=== PATIENT | male | born 2000 | race African-American/Black ===

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

== ENCOUNTER 2021-06-28 18:40 | Inpatient (IN) ==
--- NOTE | 2021-06-28 19:14 | Emergency Department Note ---
Impression & Plan Mood disorder, Suicidal ideation, Depression ED Provider Note NAME: JADIEL PALENCIA Jr AGE: 20 SEX: M : 2000 ARRIVES VIA: [employer] INFORMANT: Patient ED PROVIDER(S): Nathan Williamson DO CHIEF COMPLAINT: Suicidal ideations HPI: Patient is a 20-year-old male with a past medical history of asthma that presents to the ER for suicidal ideations. He notes he has been having thoughts of wanting to kill himself for some time now. Tonight he drank a bunch of alcohol. He was sitting on the side of the road and think about running out in front of a car to kill himself. The only thing that was stopping him at that time was thinking about his child. Police saw him sitting on the curb to drive by and started talking with him and brought him in. He admits to intermittent auditory hallucinations but cannot think of what they are at this time. Denies any visual hallucinations. No other complaints. Does admit to drinking some alcohol earlier today. ROS: See above HPI for pertinent positives & negatives. A total of 10 systems reviewed and were otherwise negative. PAST MEDICAL HISTORY:See Below PAST SURGICAL HISTORY:See Below FAMILY HISTORY:See Below SOCIAL HISTORY:See Below HOME MEDICATIONS:See Below ALLERGIES:See Below VITALS:See Below PHYSICAL EXAMINATION: GENERAL: Sitting up in bed, alert, well appearing, well nourished, no distress, non-toxic EYE EXAM: normal conjunctiva. PERRL and EOM's grossly intact. OROPHARYNX: no exudate, no erythema, lips, buccal mucosa, and tongue normal and mucous membranes are moist NECK: supple, no nuchal rigidity, no adenopathy, non-tender LUNGS: Clear to auscultation. Normal chest wall mechanics HEART: no murmurs, S1 normal and S2 normal ABDOMEN: abdomen soft, non-tender, normo-active bowel sounds, no masses, no rebound or guarding. UPPER EXTREMITIES: upper extremities are grossly normal. LOWER EXTREMITIES: No pitting edema. NEURO EXAM: Normal sensorium, cranial nerves II-XII grossly intact, normal speech, no gross weakness of arms, no gross weakness of legs. PSYCH: Admits to sitting on the edge of a curb contemplating jumping in front of a moving car. MEDICAL DECISION MAKING: Patient is a 20-year-old male who presents the ER for suicidal ideations with a plan to jump out in front of a car as he was sitting on the curb watching cars drive-by. He feels as though he is nothing left to live for and feels very depressed. Going that was stopping him from doing this was thinking about his son. Blood work was obtained and showed no significant leukocytosis or anemia. BMP with a slightly elevated chloride. LFTs bilirubin and TSH was unremarkable. UA was clean. Tox was positive for marijuana. Alcohol was slightly elevated at 84. Covid was negative. Patient had minimal alcohol in his system when he was elaborating on this plan. He does want to come in. I do feel this is reasonable. Patient was signed out to Dr. Qiu for the change of shift. Observation Status: Indication: Psychiatric evaluation and medical stability Patient with no pertinent family history, was seen first at 1910 hrs and was necessary in order to determine medical stability and avoid unnecessary admission. Upon reevaluation, 3.45 hours of observation revealed that the patient should be signed out to Dr. Ortega for the change shift. Disposition date and time 06/28/21 at 2230. Triage Nursing notes reviewed. Limited review of prior medical records performed Vital Signs: reviewed and remarkable for no significant abnormalities Differential diagnosis: Mood disorder, infection, hypoglycemia, electrolyte abnormalities, cardiac sources, intracerebral event, toxicologic, trauma, neurologic, as well as other pathologies. ER treatment provided: See below Diagnostics interpreted by me: Laboratory studies: As stated above and show below. Imaging studies: See below Consultation(s): none Procedures: none Critical Care: None Past Med/Surg History Medical History (Updated 06/28/21 @ 22:25 by Nathan Williamson DO) Asthma Surgical History Hx of wisdom tooth extraction Social History Smoking Status: Former smoker Tobacco Type: E-cigarettes / Vaping Preferred Language: Tamazight Feels Safe at Home: No Allergies Allergies Allergy/AdvReac Type Severity Reaction Status Date / Time No Known Allergies Allergy Verified 10/08/20 14:16 Home Meds Home Medications Medication Instructions Recorded Confirmed albuterol sulfate 90 mcg/actuation 2 puff INHALATION Q6H PRN 12/22/18 06/28/21 aerosol inhaler (Ventolin HFA) Results & Data (ED) Vital Signs Vital Signs - 24 hr 06/28/21 18:44 06/28/21 20:45 Temperature 36.5 C 37.1 C Temperature Source Temporal Artery Scan Oral Pulse Rate 62 Pulse Rate [Apical] 57 L Respiratory Rate 18 16 Respiratory Effort / Characteristics Non-Labored Non-Labored Respiratory Depth Normal Normal Blood Pressure 139/99 Blood Pressure [Right Arm] 151/95 H Blood Pressure Mean 112 Blood Pressure Mean [Right Arm] 113 Pulse Oximetry 98 98 Oxygen Delivery Method Room Air Room Air Sepsis Recent Fever Within 48 Hours No Sepsis New/Unexplained Change in Mental Status No Sepsis Action Taken by Nursing No Action Required Laboratory Data Result diagrams: 06/28/21 19:07 06/28/21 19:07 Lab Results 06/28/21 06/28/21 06/28/21 Range/Units 19:07 19:07 19:07 WBC 8.83 (4.8-10.8) K/uL RBC 5.09 (4.7-6.1) M/uL Hgb 15.1 (14.0-18.0) g/dL Hct 42.1 (42-52) % MCV 82.7 (80-100) fL MCH 29.7 (25-34) pg MCHC 35.9 (32-36) g/dL RDW Std Deviation 39.1 (36.4-46.3) fL RDW Coeff of Angel 13.0 (11.5-14.5) % Plt Count 281 (130-400) K/uL MPV 10.6 H (7.4-10.4) fL Immature Gran % (Auto) 0.2 % Neut % (Auto) 60.5 % Lymph % (Auto) 33.3 % Miller % (Auto) 3.9 % Eos % (Auto) 1.8 % Baso % (Auto) 0.3 % Neut # (Auto) 5.34 (1.4-6.5) K/uL Lymph # (Auto) 2.94 (1.2-3.4) K/uL [place] # (Auto) 0.34 (0.11-0.59) K/uL Eos # (Auto) 0.16 (0-0.5) K/uL Baso # (Auto) 0.03 (0-0.2) K/uL Immature Gran # (Auto) 0.02 (0.00-0.02) K/uL Sodium 143 (136-145) mmol/L Potassium 3.5 (3.5-5.1) mmol/L Chloride 109 H (98-107) mmol/L Carbon Dioxide 25 (21-32) mmol/L Anion Gap 8.0 (3-11) BUN 10 (7-18) mg/dl Creatinine 0.80 (0.6-1.4) mg/dl Est Cr Clr Drug Dosing 170.3 ml/min Est GFR ( Amer) 148.0 ml/min Est GFR (Non-Af Amer) 127.7 ml/min BUN/Creatinine Ratio 12.9 (10-20) Glucose 93 (70-99) mg/dl Calcium 9.2 (8.5-10.1) mg/dl Total Bilirubin 0.9 (0.2-1) mg/dl AST 33 (15-37) U/L ALT 98 H (12-78) U/L Alkaline Phosphatase 80 (45-117) U/L Total Protein 7.5 (6.4-8.2) gm/dl Albumin 3.9 (3.4-5.0) gm/dl Globulin 3.6 (2.5-4.0) gm/dl Albumin/Globulin Ratio 1.1 (0.9-2) TSH 1.460 (0.300-4.500) uIu/ml Urine Color Urine Appearance (Clear) Urine pH (4.5-7.5) Ur Specific [place] (1.000-1.030) Urine Protein (Negative) Urine Glucose (UA) (Negative) Urine Ketones (Negative) Urine Blood (Negative) Urine Nitrite (Negative) Urine Bilirubin (Negative) Urine Urobilinogen (Negative) Ur Leukocyte Esterase (Negative) Salicylates < 1.7 L (2.8-20) mg/dl Urine Opiates Screen (Neg) Ur Methadone, Qual (Neg) Acetaminophen < 2 L (10-30) ug/ml Urine Barbiturates (Neg) Ur Phencyclidine (PCP) (Neg) U Amphetamin/Meth Scrn (Neg) MDMA (Ecstasy) Screen (Neg) U Benzodiazepines Scrn (Neg) Ur Cocaine Metabolite (Neg) U Marijuana (THC) Screen (Neg) Ethyl Alcohol mg/dL (0-3) mg/dl COVID-19 Eval Order SARS-CoV-2, RNA, NAAT (NEGATIVE) 06/28/21 06/28/21 06/28/21 Range/Units 19:07 19:10 19:10 WBC (4.8-10.8) K/uL RBC (4.7-6.1) M/uL Hgb (14.0-18.0) g/dL Hct (42-52) % MCV (80-100) fL MCH (25-34) pg MCHC (32-36) g/dL RDW Std Deviation (36.4-46.3) fL RDW Coeff of Angel (11.5-14.5) % Plt Count (130-400) K/uL MPV (7.4-10.4) fL Immature Gran % (Auto) % Neut % (Auto) % Lymph % (Auto) % [place] % (Auto) % Eos % (Auto) % Baso % (Auto) % Neut # (Auto) (1.4-6.5) K/uL Lymph # (Auto) (1.2-3.4) K/uL [place] # (Auto) (0.11-0.59) K/uL Eos # (Auto) (0-0.5) K/uL Baso # (Auto) (0-0.2) K/uL Immature Gran # (Auto) (0.00-0.02) K/uL Sodium (136-145) mmol/L Potassium (3.5-5.1) mmol/L Chloride (98-107) mmol/L Carbon Dioxide (21-32) mmol/L Anion Gap (3-11) BUN (7-18) mg/dl Creatinine (0.6-1.4) mg/dl Est Cr Clr Drug Dosing ml/min Est GFR ( Amer) ml/min Est GFR (Non-Af Amer) ml/min BUN/Creatinine Ratio (10-20) Glucose (70-99) mg/dl Calcium (8.5-10.1) mg/dl Total Bilirubin (0.2-1) mg/dl AST (15-37) U/L ALT (12-78) U/L Alkaline Phosphatase (45-117) U/L Total Protein (6.4-8.2) gm/dl Albumin (3.4-5.0) gm/dl Globulin (2.5-4.0) gm/dl Albumin/Globulin Ratio (0.9-2) TSH (0.300-4.500) uIu/ml Urine Color Urine Appearance (Clear) Urine pH (4.5-7.5) Ur Specific [place] (1.000-1.030) Urine Protein (Negative) Urine Glucose (UA) (Negative) Urine Ketones (Negative) Urine Blood (Negative) Urine Nitrite (Negative) Urine Bilirubin (Negative) Urine Urobilinogen (Negative) Ur Leukocyte Esterase (Negative) Salicylates (2.8-20) mg/dl Urine Opiates Screen (Neg) Ur Methadone, Qual (Neg) Acetaminophen (10-30) ug/ml Urine Barbiturates (Neg) Ur Phencyclidine (PCP) (Neg) U Amphetamin/Meth Scrn (Neg) MDMA (Ecstasy) Screen (Neg) U Benzodiazepines Scrn (Neg) Ur Cocaine Metabolite (Neg) U Marijuana (THC) Screen (Neg) Ethyl Alcohol mg/dL 84.3 H (0-3) mg/dl COVID-19 Eval [facility] SARS-CoV-2, RNA, NAAT NEGATIVE (NEGATIVE) 06/28/21 06/28/21 Range/Units 19:49 19:49 WBC (4.8-10.8) K/uL RBC (4.7-6.1) M/uL Hgb (14.0-18.0) g/dL Hct (42-52) % MCV (80-100) fL MCH (25-34) pg MCHC (32-36) g/dL RDW Std Deviation (36.4-46.3) fL RDW Coeff of Angel (11.5-14.5) % Plt Count (130-400) K/uL MPV (7.4-10.4) fL Immature Gran % (Auto) % Neut % (Auto) % Lymph % (Auto) % [place] % (Auto) % Eos % (Auto) % Baso % (Auto) % Neut # (Auto) (1.4-6.5) K/uL Lymph # (Auto) (1.2-3.4) K/uL [place] # (Auto) (0.11-0.59) K/uL Eos # (Auto) (0-0.5) K/uL Baso # (Auto) (0-0.2) K/uL Immature Gran # (Auto) (0.00-0.02) K/uL Sodium (136-145) mmol/L Potassium (3.5-5.1) mmol/L Chloride (98-107) mmol/L Carbon Dioxide (21-32) mmol/L Anion Gap (3-11) BUN (7-18) mg/dl Creatinine (0.6-1.4) mg/dl Est Cr Clr Drug Dosing ml/min Est GFR ( Amer) ml/min Est GFR (Non-Af Amer) ml/min BUN/Creatinine Ratio (10-20) Glucose (70-99) mg/dl Calcium (8.5-10.1) mg/dl Total Bilirubin (0.2-1) mg/dl AST (15-37) U/L ALT (12-78) U/L Alkaline Phosphatase (45-117) U/L Total Protein (6.4-8.2) gm/dl Albumin (3.4-5.0) gm/dl Globulin (2.5-4.0) gm/dl Albumin/Globulin Ratio (0.9-2) TSH (0.300-4.500) uIu/ml Urine Color Yellow Urine Appearance Clear (Clear) Urine pH 6.5 (4.5-7.5) Ur Specific [place] 1.019 (1.000-1.030) Urine Protein Negative (Negative) Urine Glucose (UA) Negative (Negative) Urine Ketones Negative (Negative) Urine Blood Negative (Negative) Urine Nitrite Negative (Negative) Urine Bilirubin Negative (Negative) Urine Urobilinogen Negative (Negative) Ur Leukocyte Esterase Negative (Negative) Salicylates (2.8-20) mg/dl Urine Opiates Screen Neg (Neg) Ur Methadone, Qual Neg (Neg) Acetaminophen (10-30) ug/ml Urine Barbiturates Neg (Neg) Ur Phencyclidine (PCP) Neg (Neg) U Amphetamin/Meth Scrn Neg (Neg) MDMA (Ecstasy) Screen Neg (Neg) U Benzodiazepines Scrn Neg (Neg) Ur Cocaine Metabolite Neg (Neg) U Marijuana (THC) Screen Pos H (Neg) Ethyl Alcohol mg/dL (0-3) mg/dl COVID-19 Eval Order SARS-CoV-2, RNA, NAAT (NEGATIVE) Discharge Plan Visit Data Chief Complaint: Mental Health Evaluation Stated Complaint: MENTAL HEALTH EVAL ED Provider: Nathan Williamson Discharge Problem: Mood disorder, Suicidal ideation, Depression Forms Stand Alone Forms: [facility], Suicide Prevention Resources Prescriptions Prescriptions: No Action albuterol sulfate [Ventolin HFA] 90 mcg/actuation Hfa Aerosol Inhaler 2 puff INHALATION Q6H PRN (Reason: Shortness Of Breath Or Wheezing) RF: 0 Referrals Referrals: Mallory Noyola DO [Primary Care Provider] - Discharge Problem: Depression Qualifiers: Depression Type: unspecified Qualified Code(s): F32.A - Depression, unspecified
[2021-06-28 19:16] LABS: Basophils # (auto) 0.03 K/uL (0-0.2); Basophils % (auto) 0.3 %; Eosinophils # (auto) 0.16 K/uL (0-0.5); Eosinophils % (auto) 1.8 %; Hematocrit (blood only) 42.1 % (42-52); Hemoglobin 15.1 g/dL (14.0-18.0); Immature Granulocytes # (auto) 0.02 K/uL (0.00-0.02); Immature Granulocytes % (auto) 0.2 %; Lymphocytes # (auto) 2.94 K/uL (1.2-3.4); Lymphocytes % (auto) 33.3 %; Mean Corpuscular Hemoglobin 29.7 pg (25-34); Mean Corpuscular Hgb Conc 35.9 g/dL (32-36); Mean Corpuscular Volume 82.7 fL (80-100); Mean Platelet Volume 10.6 fL (7.4-10.4); Monocytes # (auto) 0.34 K/uL (0.11-0.59); Monocytes % (auto) 3.9 %; Neutrophils # (auto) 5.34 K/uL (1.4-6.5); Neutrophils % (auto) 60.5 %; Platelet Count 281 K/uL (130-400); RDW Standard Deviation 39.1 fL (36.4-46.3); Red Blood Count 5.09 M/uL (4.7-6.1); White Blood Count 8.83 K/uL (4.8-10.8)
[2021-06-28 19:33] LABS: Albumin Level 3.9 gm/dl (3.4-5.0); BUN Creatinine Ratio 12.9 (10-20); Calcium 9.2 mg/dl (8.5-10.1); Creatinine Clr Calc Pharmacy 170.3 ml/min; Est GFR (Non-African American) 127.7 ml/min; Potassium 3.5 mmol/L (3.5-5.1)
[2021-06-28 19:35] LABS: Acetaminophen < 2 ug/ml (10-30); Salicylate < 1.7 mg/dl (2.8-20)
[2021-06-28 19:44] LABS: Albumin Globulin Ratio 1.1 (0.9-2); Bilirubin,Total 0.9 mg/dl (0.2-1); Globulin 3.6 gm/dl (2.5-4.0); Thyroid Stimulating Hormone 1.46 uIu/ml (0.300-4.500); Total Protein 7.5 gm/dl (6.4-8.2)
[2021-06-28 19:59] LABS: Appearance Urine Clear (Clear); Bilirubin Urine Negative (Negative); Blood Urine Negative (Negative); Color Urine Yellow; Glucose Urine UA Negative (Negative); Ketones Urine Negative (Negative); Leukocyte Esterase Urine Negative (Negative); Nitrite Urine Negative (Negative); Protein Urine Negative (Negative); Specific Gravity Urine 1.019 (1.000-1.030); Urobilinogen Urine Negative (Negative); pH Urine 6.5 (4.5-7.5)
[2021-06-28 20:19] LABS: Amphetamines+Metham, Urine Neg (Neg); Barbiturates, Urine Neg (Neg); Benzodiazepine, Urine Neg (Neg); Cocaine, Urine Neg (Neg); MDMA (Ecstacy), Urine Neg (Neg); Methadone, Urine Neg (Neg); Opiate, Urine Neg (Neg); Phencyclidine, Urine Neg (Neg)
--- NOTE | 2021-06-29 00:45 | Emergency Department Note ---
ED Visit Note The patient was accepted at [facility]. . : Depression Qualifiers: Depression Type: unspecified Qualified Code(s): F32.A - Depression, unspecified
[2021-06-29] MEDS ORDERED: SODIUM CHLORIDE 0.65% NA SOLN 45 ML (OCEAN) PRN (01:00)
[2021-06-29] MEDS ORDERED: ALUMINUM/MAGNESIUM SUSP 30 ML UDC PO PRN (01:00)
[2021-06-29] MEDS ORDERED: hydrOXYzine HCl 25 MG TAB PO PRN ×2 (01:00)
[2021-06-29] MEDS ORDERED: MAGNESIUM HYDROXIDE SUSP 30 ML UDC PO PRN (01:00)
[2021-06-29] MEDS ORDERED: ACETAMINOPHEN 325 MG TAB PO PRN (01:00)
[2021-06-29] MEDS ORDERED: BISMUTH SUBSALICYLATE LIQD 236 ML PO PRN (01:00)
[2021-06-29] MEDS ORDERED: buPROPion SR 100 MG TABCR PO ONE (11:09)
--- NOTE | 2021-06-29 14:26 | History & Physical ---
Date of Service June 29, 2021 Impression / Recommendations Impression 20 yo male with a long history of intermittent mood disorder, possible persistent ADHD/inattention, presents with vegetative symptoms and near gesture with traffic. (1) Major depression: 06/29/21: The patient was admitted to the [facility] ([facility] mental health unit) on q15 min checks (behavioral with suicide precautions) for safety. The patient will participate in group, recreational, and milieu therapies and will be offered additional individual and family sessions as clinically appropriate. Risks/benefits/alternatives reviewed re: antidepressants for the treatment of depression and/or anxiety. Discussion included but was not limited to FDA warnings re: suicidality in adolescents and young adults. The patient agreed to a trial of Wellbutrin. Will begin Wellbutrin SR 100 mg now then 150 mg tomorrow, switch to XL prep if no sleep issues. Confirmed no hx of seizure. Risk Factors Assessment Do You Have Access To A Gun?: No Protective Factors Assessment Employed: Yes ([employer]) Psychiatric History Identifying Data JADIEL PALENCIA is a 20-year-old M from [place] who was admitted on 06/29/21 00:32 on a 201 voluntary commitment for near suicidal gesture. Chief Complaint "If the police didn't bring me here I'd probably be ". History of Present Illness Jadiel reports a variety of mood issues since "I was a kid" but worsening in the past few weeks due to conflict with girlfriend. She just turned 21 yo and they have been a couple for 3 years and have a 2-year-old son. They are both dealing with depression and he reportedly yells because "she stays out late hanging with friends". He enjoys his time with his son but feels the stress of being the sole provider. 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 He opted to stay here to be a family with his son instead. He denies a specific inciting even yesterday but felt the need to calm down and drank some peppermint schnapps. He reports rarely drinking. He went for a walk in the gray and screamed "it out" and then sat by the road and thought of running out in front of a car. He must have been there for some time as police (who were responding to another mental health emergency) saw him and questioned the behavior. He states that another stressor is that he quit smoking (vape and MJ) like 2 weeks ago for health reasons but "it's hard". He admits to using CBD gummies to "relax at bed" and reports girlfriend has a medical MJ card. It was reported from the ED that he possibly was experiencing cook. He currently denies stating that thoughts get "stuck in my head but I know they are my thoughts" and with regards to paranoia was more general sense of someone or the world is out to get him. More prominent when was using MJ. Past Psychiatric History Previous Psych History: states as a child he took medication (perhaps Adderall for ADHD inattentive type) and had to see a therapist for threatening to harm his brother who bullied him. Current Psychiatric Diagnosis: MDD Outpatient Services: none Previous Psych Admissions: none Do You Have Access To A Gun?: No Describe Attempts in the Past: younger - attempted to hang self--patient retracts this saying thought Past Medication Trials: unsure Past Head Trauma/Neuro History History of Concussion/Seizure: No Allergies Allergy/AdvReac Type Severity Reaction Status Date / Time No Known Allergies Allergy Verified 10/08/20 14:16 Home Medications Medication Instructions Recorded Confirmed Type albuterol sulfate 90 mcg/actuation 2 puff INHALATION Q6H PRN 12/22/18 06/28/21 History aerosol inhaler (Ventolin HFA) Family History Family History of: Doesn't Know Alcohol History Hx of Alcohol Use Over the Past 12 Months: Yes (occassional/social) AUDIT Total Score: 7 Smoking Use Have You Smoked or Used Tobacco Products in the Last 30 Days: No Smoking Status: Former smoker Substance History Hx of Prescription Med Misuse Over the Past 12 Months: No Hx of Over the Counter Med Misuse Over the Past 12 Months: No Hx of Inhalent Misuse Over the Past 12 Months: No Hx of Organic Substance Use Over the Past 12 Months: Yes (Marijuana- frequently) Hx of Illegal Substances/Street Drug Use Over Past 12 Months: No Problems as a Result of Past Substance Use: None Identified Personal History Living Arrangements: Apartment Highest Grade Completed: Vocational Training Highest Grade Completed Comment: 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 Other Number Of Children: 1 Beliefs That Will Affect Care: None Current Legal Problems: No Hx Traumatic Life Events: No Patient History Medical History (Updated 06/29/21 @ 14:21 by Zulema Gandara MD) Asthma Surgical History Hx of wisdom tooth extraction Social History Smoking Status: Former smoker Tobacco Type: E-cigarettes / Vaping Preferred Language: Faroese Communication Ability: Effective Advertising Specialist Required: No Beliefs That Will Affect Care: None Feels Safe at Home: Yes Assistive Devices: None Review of Systems Review of Systems: All systems reviewed & are unremarkable except as noted in HPI & below Physical Exam Psychiatric: Orientation: alert and oriented x 3 Apperance: appropriately dressed and appropriately groomed Eye Contact: good eye contact Motor Behavior: no abnormal motor movements Speech: normal rate/rhythm/volume of speech Affect: + depressed affect Mood: + depressed mood Thought Process: goal directed thought process Thought Content: reality based without delusions Suicidal Thoughts: denies suicidal intent; + reports suicidal thoughts and + reports suicidal plan Homicidal Thoughts: denies homicidal thoughts Hallucinations: no auditory hallucinations and no visual hallucinations Cognition: attention grossly intact and language grossly intact Estimated Intelligence: consistent with education level Insight: + fair insight Judgement: + limited judgement Vital Signs (Past 24 Hours): Last Vital Signs Temp 36.7 C 06/29/21 06:26 Pulse 71 06/29/21 06:27 Resp 16 06/29/21 06:26 BP 131/61 06/29/21 06:27 Pulse Ox 97 06/29/21 01:02 Exam Statement: A physical exam was performed in the ED by Dr. Williamson for the purposes of medical clearance. I accept that physical as correct and adequate for the purposes of the inpatient physical exam. Results & Data ([facility]) Laboratory Results Laboratory Results - last 24 hr 06/28/21 06/28/21 06/28/21 19:07 19:07 19:07 WBC 8.83 RBC 5.09 Hgb 15.1 Hct 42.1 MCV 82.7 MCH 29.7 MCHC 35.9 RDW Std Deviation 39.1 RDW Coeff of Angel 13.0 Plt Count 281 MPV 10.6 H Immature Gran % (Auto) 0.2 Neut % (Auto) 60.5 Lymph % (Auto) 33.3 [place] % (Auto) 3.9 Eos % (Auto) 1.8 Baso % (Auto) 0.3 Neut # (Auto) 5.34 Lymph # (Auto) 2.94 [place] # (Auto) 0.34 Eos # (Auto) 0.16 Baso # (Auto) 0.03 Immature Gran # (Auto) 0.02 Sodium 143 Potassium 3.5 Chloride 109 H Carbon Dioxide 25 Anion Gap 8.0 BUN 10 Creatinine 0.80 Est Cr Clr Drug Dosing 170.3 Est GFR ( Amer) 148.0 Est GFR (Non-Af Amer) 127.7 BUN/Creatinine Ratio 12.9 Glucose 93 Calcium 9.2 Total Bilirubin 0.9 AST 33 ALT 98 H Alkaline Phosphatase 80 Total Protein 7.5 Albumin 3.9 Globulin 3.6 Albumin/Globulin Ratio 1.1 TSH 1.460 Urine Color Urine Appearance Urine pH Ur Specific [place] Urine Protein Urine Glucose (UA) Urine Ketones Urine Blood Urine Nitrite Urine Bilirubin Urine Urobilinogen Ur Leukocyte Esterase Salicylates < 1.7 L Urine Opiates Screen Ur Methadone, Qual Acetaminophen < 2 L Urine Barbiturates Ur Phencyclidine (PCP) U Amphetamin/Meth Scrn MDMA (Ecstasy) Screen U Benzodiazepines Scrn Ur Cocaine Metabolite U Marijuana (THC) Screen U Marijuana THC Carboxy Drug Screen Comment Ethyl Alcohol mg/dL COVID-19 Eval Order SARS-CoV-2, RNA, NAAT 06/28/21 06/28/21 06/28/21 19:07 19:10 19:10 WBC RBC Hgb Hct MCV MCH MCHC RDW Std Deviation RDW Coeff of Angel Plt Count MPV Immature Gran % (Auto) Neut % (Auto) Lymph % (Auto) [place] % (Auto) Eos % (Auto) Baso % (Auto) Neut # (Auto) Lymph # (Auto) [place] # (Auto) Eos # (Auto) Baso # (Auto) Immature Gran # (Auto) Sodium Potassium Chloride Carbon Dioxide Anion Gap BUN Creatinine Est Cr Clr Drug Dosing Est GFR ( Amer) Est GFR (Non-Af Amer) BUN/Creatinine Ratio Glucose Calcium Total Bilirubin AST ALT Alkaline Phosphatase Total Protein Albumin Globulin Albumin/Globulin Ratio TSH Urine Color Urine Appearance Urine pH Ur Specific [place] Urine Protein Urine Glucose (UA) Urine Ketones Urine Blood Urine Nitrite Urine Bilirubin Urine Urobilinogen Ur Leukocyte Esterase Salicylates Urine Opiates Screen Ur Methadone, Qual Acetaminophen Urine Barbiturates Ur Phencyclidine (PCP) U Amphetamin/Meth Scrn MDMA (Ecstasy) Screen U Benzodiazepines Scrn Ur Cocaine Metabolite U Marijuana (THC) Screen U Marijuana THC Carboxy Drug Screen Comment Ethyl Alcohol mg/dL 84.3 H COVID-19 Eval [facility] SARS-CoV-2, RNA, NAAT NEGATIVE 06/28/21 06/28/21 06/28/21 19:49 19:49 19:49 WBC RBC Hgb Hct MCV MCH MCHC RDW Std Deviation RDW Coeff of Angel Plt Count MPV Immature Gran % (Auto) Neut % (Auto) Lymph % (Auto) [place] % (Auto) Eos % (Auto) Baso % (Auto) Neut # (Auto) Lymph # (Auto) [place] # (Auto) Eos # (Auto) Baso # (Auto) Immature Gran # (Auto) Sodium Potassium Chloride Carbon Dioxide Anion Gap BUN Creatinine Est Cr Clr Drug Dosing Est GFR ( Amer) Est GFR (Non-Af Amer) BUN/Creatinine Ratio Glucose Calcium Total Bilirubin AST ALT Alkaline Phosphatase Total Protein Albumin Globulin Albumin/Globulin Ratio TSH Urine Color Yellow Urine Appearance Clear Urine pH 6.5 Ur Specific [place] 1.019 Urine Protein Negative Urine Glucose (UA) Negative Urine Ketones Negative Urine Blood Negative Urine Nitrite Negative Urine Bilirubin Negative Urine Urobilinogen Negative Ur Leukocyte Esterase Negative Salicylates Urine Opiates Screen Neg Ur Methadone, Qual Neg Acetaminophen Urine Barbiturates Neg Ur Phencyclidine (PCP) Neg U Amphetamin/Meth Scrn Neg MDMA (Ecstasy) Screen Neg U Benzodiazepines Scrn Neg Ur Cocaine Metabolite Neg U Marijuana (THC) Screen Pos H U Marijuana THC Carboxy Pending Drug Screen Comment Pending Ethyl Alcohol mg/dL COVID-19 Eval Order SARS-CoV-2, RNA, NAAT Current Inpatient Medications Current Inpatient Medications: Current Inpatient Medications Acetaminophen (Acetaminophen 325 Mg Tab) 650 mg PO Q4H PRN PRN Reason: Headache or Minor Fever Stop: 07/29/21 00:59 Al Hydrox/Mg Hydrox/Simethicone (Aluminum/Magnesium Susp 30 Ml Udc) 30 ml PO Q4H PRN PRN Reason: GI Upset Stop: 07/29/21 00:59 Bismuth Subsalicylate (Bismuth Subsalicylate Liqd 236 Ml) 15 ml PO PRN PRN PRN Reason: Loose Stool Stop: 07/29/21 00:59 Bupropion HCl (Bupropion Sr 150 Mg Tabcr) 150 mg PO QAM CADEN Stop: 07/30/21 08:59 Hydroxyzine HCl (Hydroxyzine Hcl 25 Mg Tab) 50 mg PO HSZ PRN PRN Reason: Insomnia Stop: 07/29/21 00:59 Hydroxyzine HCl (Hydroxyzine Hcl 25 Mg Tab) 25 mg PO Q4H PRN PRN Reason: Anxiety Stop: 07/29/21 00:59 Magnesium Hydroxide (Magnesium Hydroxide Susp 30 Ml Udc) 30 ml PO DAILY PRN PRN Reason: Constipation Stop: 07/29/21 00:59 Sodium Chloride (Sodium Chloride 0.65% Na Soln 45 Ml ([place])) 1 - 2 sprays NA PRN PRN PRN Reason: Nasal Dryness/Congestion Stop: 07/29/21 00:59
[2021-06-30] MEDS ORDERED: buPROPion SR 150 MG TABCR PO SCH (09:00)
--- NOTE | 2021-06-30 14:21 | Psychiatric Progress Note ---
Date of Service June 30, 2021 Impression / Recommendations Impression 20 yo man with history of mood symptoms and possible ADHD admitted for worsening depression and SI with plan and preparatory behavior of attempting to step into traffic. Diagnostically consistent with MDD. They continue to require inpatient level of care due to threat to self given recent SI that requires help for safety and stabilization. Discussed risks, benefits, alteratives of switching from Wellbutrin SR to XL for MDD which he consents to. --Voluntary status (1) Major depression: 06/30/21--He's tolerating Wellbutrin well so will continue with titration to Wellbutrin XL 150 mg qd with plan to increase to 300mg qd in the next few days if tolerated. Family meeting to be held today. 06/29/21: The patient was admitted to the [facility] ([facility] unit) on q15 min checks (behavioral with suicide precautions) for safety. The patient will participate in group, recreational, and milieu therapies and will be offered additional individual and family sessions as clinically appropriate. Risks/benefits/alternatives reviewed re: antidepressants for the treatment of depression and/or anxiety. Discussion included but was not limited to FDA warnings re: suicidality in adolescents and young adults. The patient agreed to a trial of Wellbutrin. Will begin Wellbutrin SR 100 mg now then 150 mg tomorrow, switch to XL prep if no sleep issues. Confirmed no hx of seizure. Risk Factors Assessment Do You Have Access To A Gun?: No Protective Factors Assessment Employed: Yes ([employer]) Interval History Identifying Information 20 yo man with history of mood symptoms and possible ADHD admitted for worsening depression and SI with plan and preparatory behavior of attempting to step into traffic. Chief Complaint "Talking to people is helping". Review of Systems Sleep Information Total Hours of Sleep: 7 Sleep Comments: pt on q-15 minute checks Meal Information Percent Meal Consumed - Breakfast: 100 Percent Meal Consumed - Lunch: 100 Percent Meal Consumed - Dinner: 100 Subjective Subjective Chart and events of last 24 hours reviewed and discussed with multidisciplinary treatment team including nursing and social work. No acute events reported overnight. Slept well. Eating well. Attending groups. Adherent with medications. Today he reports slowing improving mood. Tolerating the Wellbutrin well without any insomnia, agitation or other side effects. Spent more than 20 minutes in the care and coordination of this patient of which greater than 50% was dedicated to counseling and coordination of care. Physical Exam Psychiatric Orientation: alert and oriented x 3 Apperance: appropriately dressed and appropriately groomed Eye Contact: good eye contact Motor Behavior: steady gait and station and no abnormal motor movements Speech: normal rate/rhythm/volume of speech Affect: + depressed affect Mood: + depressed mood Thought Process: goal directed thought process and linear/logical thought process Thought Content: reality based without delusions Suicidal Thoughts: denies suicidal thoughts Homicidal Thoughts: denies homicidal thoughts Hallucinations: no auditory hallucinations and no visual hallucinations Cognition: recent memory grossly intact and remote memory grossly intact Estimated Intelligence: consistent with education level Insight: + fair insight Judgement: + fair judgement Vital Signs (Past 24 Hours) Last Vital Signs Temp 36.6 C 06/30/21 06:00 Pulse 80 06/30/21 06:47 Resp 14 06/30/21 06:00 BP 125/82 06/30/21 06:47 Pulse Ox 97 06/29/21 01:02 Results & Data ([facility]) Current Inpatient Medications Current Inpatient Medications: Current Inpatient Medications Acetaminophen (Acetaminophen 325 Mg Tab) 650 mg PO Q4H PRN PRN Reason: Headache or Minor Fever Stop: 07/29/21 00:59 Al Hydrox/Mg Hydrox/Simethicone (Aluminum/Magnesium Susp 30 Ml Udc) 30 ml PO Q4H PRN PRN Reason: GI Upset Stop: 07/29/21 00:59 Bismuth Subsalicylate (Bismuth Subsalicylate Liqd 236 Ml) 15 ml PO PRN PRN PRN Reason: Loose Stool Stop: 07/29/21 00:59 Bupropion HCl (Bupropion Xl 150 Mg Tabcr) 150 mg PO QAM CADEN Stop: 07/31/21 08:59 Hydroxyzine HCl (Hydroxyzine Hcl 25 Mg Tab) 50 mg PO HSZ PRN PRN Reason: Insomnia Stop: 07/29/21 00:59 Hydroxyzine HCl (Hydroxyzine Hcl 25 Mg Tab) 25 mg PO Q4H PRN PRN Reason: Anxiety Stop: 07/29/21 00:59 Magnesium Hydroxide (Magnesium Hydroxide Susp 30 Ml Udc) 30 ml PO DAILY PRN PRN Reason: Constipation Stop: 07/29/21 00:59 Sodium Chloride (Sodium Chloride 0.65% Na Soln 45 Ml ([place])) 1 - 2 sprays NA PRN PRN PRN Reason: Nasal Dryness/Congestion Stop: 07/29/21 00:59 Mental Health & Subst Abuse Tx Therapist Name of Therapist: None Compatibility Test Engineer Name of Compatibility Test Engineer: None Post Discharge Appointments Primary Care Physician Name Of Family Doctor: Maximino Primary Care Provider Appointment Comment: [phone] Contact Information [facility] [place] [address]
[2021-07-01 06:51] LABS: Marijuana Quant, GCMS Urine 1570 ng/mL (<5)
[2021-07-01] MEDS: buPROPion XL 150 MG TABCR PO SCH (08:42)
--- NOTE | 2021-07-01 13:45 | Psychiatric Progress Note ---
Date of Service July 01, 2021 Impression / Recommendations Impression 20 yo man with history of mood symptoms and possible ADHD admitted for worsening depression and SI with plan and preparatory behavior of attempting to step into traffic. Diagnostically consistent with MDD. They continue to require inpatient level of care due to threat to self given recent SI that requires help for safety and stabilization. Showing steady signs of improvement in terms of mood and no SI. Wellbutrin is helping with ADHD symptoms of inattention. --Voluntary status (1) Major depression: 07/01/21--He continues to tolerate the Wellbutrin well without any side effects. He would prefer to remain at the Wellbutrin XL 150mg dose with the option to increase to 300mg in the future if after 4 weeks he continues to have lingering symptoms of depression. Had a productive family meeting and is utilizing therapeutic coping skills. Rash, which developed prior to initiation of Wellbutrin, for which topical benadryl cream prescribed. 06/30/21--He's tolerating Wellbutrin well so will continue with titration to Wellbutrin XL 150 mg qd with plan to increase to 300mg qd in the next few days if tolerated. Family meeting to be held today. 06/29/21: The patient was admitted to the [facility] ([facility] mental health unit) on q15 min checks (behavioral with suicide precautions) for safety. The patient will participate in group, recreational, and milieu therapies and will be offered additional individual and family sessions as clinically appropriate. Risks/benefits/alternatives reviewed re: antidepressants for the treatment of depression and/or anxiety. Discussion included but was not limited to FDA warnings re: suicidality in adolescents and young adults. The patient agreed to a trial of Wellbutrin. Will begin Wellbutrin SR 100 mg now then 150 mg tomorrow, switch to XL prep if no sleep issues. Confirmed no hx of seizure. Risk Factors Assessment Do You Have Access To A Gun?: No Protective Factors Assessment Employed: Yes ([employer]) Interval History Identifying Information 20 yo man with history of mood symptoms and possible ADHD admitted for worsening depression and SI with plan and preparatory behavior of attempting to step into traffic. Chief Complaint "I'm more focused". Review of Systems Sleep Information Total Hours of Sleep: 5.75 Sleep Comments: pt on q-15 minute checks Meal Information Percent Meal Consumed - Breakfast: 90 Percent Meal Consumed - Lunch: 95 Percent Meal Consumed - Dinner: 100 Subjective Subjective Chart and events of last 24 hours reviewed and discussed with multidisciplinary treatment team including nursing and social work. No acute events reported overnight. Slept well. Eating well. Attending groups. Adherent with medications. He reports improvement in mood with less depression and finds that the Wellbutrin is helping with his inattention. No side effects from Wellbutrin. No SI. Spent more than 20 minutes in the care and coordination of this patient of which greater than 50% was dedicated to counseling and coordination of care. Physical Exam Psychiatric Orientation: alert and oriented x 3 Apperance: appropriately dressed and appropriately groomed Eye Contact: good eye contact Motor Behavior: steady gait and station and no abnormal motor movements Speech: normal rate/rhythm/volume of speech Affect: + constricted affect Mood: + depressed mood Thought Process: goal directed thought process and linear/logical thought process Thought Content: reality based without delusions Suicidal Thoughts: denies suicidal thoughts and denies suicidal intent; + reports suicidal plan Homicidal Thoughts: denies homicidal thoughts Hallucinations: no auditory hallucinations and no visual hallucinations Cognition: recent memory grossly intact, remote memory grossly intact, attention grossly intact and language grossly intact Estimated Intelligence: consistent with education level Insight: + fair insight Judgement: + limited judgement and + fair judgement Vital Signs (Past 24 Hours) Last Vital Signs Temp 36.6 C 07/01/21 06:00 Pulse 65 07/01/21 06:34 Resp 16 07/01/21 06:00 BP 114/75 07/01/21 06:34 Pulse Ox 97 06/29/21 01:02 Results & Data ([facility]) Laboratory Results Laboratory Results - last 24 hr 06/28/21 19:49 U Marijuana THC Carboxy 1570 H Drug Screen Comment SEE NOTE Current Inpatient Medications Current Inpatient Medications: Current Inpatient Medications Acetaminophen (Acetaminophen 325 Mg Tab) 650 mg PO Q4H PRN PRN Reason: Headache or Minor Fever Stop: 07/29/21 00:59 Al Hydrox/Mg Hydrox/Simethicone (Aluminum/Magnesium Susp 30 Ml Udc) 30 ml PO Q4H PRN PRN Reason: GI Upset Stop: 07/29/21 00:59 Bismuth Subsalicylate (Bismuth Subsalicylate Liqd 236 Ml) 15 ml PO PRN PRN PRN Reason: Loose Stool Stop: 07/29/21 00:59 Bupropion HCl (Bupropion Xl 150 Mg Tabcr) 150 mg PO QAM CADEN Stop: 07/31/21 08:59 Last Admin: 07/01/21 08:42 Dose: 150 mg Documented by: Hydroxyzine HCl (Hydroxyzine Hcl 25 Mg Tab) 50 mg PO HSZ PRN PRN Reason: Insomnia Stop: 07/29/21 00:59 Hydroxyzine HCl (Hydroxyzine Hcl 25 Mg Tab) 25 mg PO Q4H PRN PRN Reason: Anxiety Stop: 07/29/21 00:59 Magnesium Hydroxide (Magnesium Hydroxide Susp 30 Ml Udc) 30 ml PO DAILY PRN PRN Reason: Constipation Stop: 07/29/21 00:59 Sodium Chloride (Sodium Chloride 0.65% Na Soln 45 Ml ([place])) 1 - 2 sprays NA PRN PRN PRN Reason: Nasal Dryness/Congestion Stop: 07/29/21 00:59 Zinc Acetate/Diphenhydramine (Diphenhydramine 2%/Zinc 0.1% Cream 28gm Tube) 1 appln EXT BID PRN PRN Reason: Itching Stop: 07/31/21 11:27 Last Admin: 07/01/21 12:04 Dose: 1 appln Documented by: Mental Health & Subst Abuse Tx Psychiatrist Name of Psychiatrist: Delilah Psychiatrist's Time of Appointment with Psychiatrist: Please call to follow up on intake Psychiatric Appointment Comment: [phone] [place] Therapist Name of Therapist: Delilah Therapist's Time of Therapist Appointment: Please call to follow up on intake Therapy Appointment Comment: [phone] Developer Support Engineer Name of Developer Support Engineer: None Post Discharge Appointments Primary Care Physician Name Of Family Doctor: Maximino [facility] [phone] [facility] Contact Information Discharge Discharge Address: [facility] [place] [address]
[2021-07-02] MEDS: buPROPion XL 150 MG TABCR PO SCH (09:03)
--- NOTE | 2021-07-02 10:46 | Discharge Summary ---
Date of Service July 02, 2021 History of Present Illness Gage reports a variety of mood issues since "I was a kid" but worsening in the past few weeks due to conflict with girlfriend. She just turned 21 yo and they have been a couple for 3 years and have a 2-year-old son. They are both dealing with depression and he reportedly yells because "she stays out late hanging with friends". He enjoys his time with his son but feels the stress of being the sole provider. 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 He opted to stay here to be a family with his son instead. He denies a specific inciting even yesterday but felt the need to calm down and drank some peppermint schnapps. He reports rarely drinking. He went for a walk in the gray and screamed "it out" and then sat by the road and thought of running out in front of a car. He must have been there for some time as police (who were responding to another mental health emergency) saw him and questioned the behavior. He states that another stressor is that he quit smoking (vape and MJ) like 2 weeks ago for health reasons but "it's hard". He admits to using CBD gummies to "relax at bed" and reports girlfriend has a medical MJ card. It was reported from the ED that he possibly was experiencing cook. He currently denies stating that thoughts get "stuck in my head but I know they are my thoughts" and with regards to paranoia was more general sense of someone or the world is out to get him. More prominent when was using MJ. Physical Exam Vital Signs (Past 24 Hours) Last Vital Signs Temp 36.6 C 07/02/21 10:30 Pulse 60 07/02/21 10:30 Resp 16 07/02/21 10:30 BP 124/74 07/02/21 10:30 Pulse Ox 97 07/02/21 10:30 See admission H&P and DOD summary. Principal Diagnosis Major Depressive Disorder Psychiatric Data See daily stay summary. In short, patient was engaged with the social/therapeutic milieu of the unit, safety was maintained and the patient was cooperative with care. Medication changes included initiation of Wellbutrin and they tolerated this well. If in the future depressive symptoms return or worsen consider increasing Wellbutrin XL from 150 mg qd to 300 mg qd. A family session was held and safety plan was completed prior to discharge. Day of Discharge Assessment Today the patient voices readiness for discharge. They note improvement in mood and anxiety. They deny thoughts of harm to self or others. No SI since Friday when admitted. Thoughts remain organized and they are clinically improved from admission. There is no evidence of psychosis. They improved in the hospital with support and medication adjustments. Excited to return home and see his son and to get back to work tomorrow. They agree to take medications as prescribed and keep follow-up appointments. At the time of the discharge they are deemed to be stable and appropriate for outpatient level of care. They are not deemed to be at imminent risk of harm to self or others. They are aware of emergency and crisis services. Knows to call 911 or go to nearest emergency care center if in a crisis which cannot be handled as an outpatient. Advance Directives Advance Directives Information Provided: Yes Advance Directives: No Mental Health Advance Directive: No Advance Directives on File: No Living Will: No Power of Licensed Practical Nurse: No Advance Directives Reason:: Declines as Mental Health Visit. Risk Factors Assessment Do You Have Access To A Gun?: No Hopelessness: No Protective Factors Assessment Responsible for Young Children: Yes Employed: Yes ([employer]) Stable Relationships: Yes Supportive Family: Yes Good Rapport with Provider: Yes Discharge Data Lab Results 06/28/21 06/28/21 06/28/21 19:07 19:07 19:07 WBC 8.83 RBC 5.09 Hgb 15.1 Hct 42.1 MCV 82.7 MCH 29.7 MCHC 35.9 RDW Std Deviation 39.1 RDW Coeff of Angel 13.0 Plt Count 281 MPV 10.6 H Immature Gran % (Auto) 0.2 Neut % (Auto) 60.5 Lymph % (Auto) 33.3 Mercer % (Auto) 3.9 Eos % (Auto) 1.8 Baso % (Auto) 0.3 Neut # (Auto) 5.34 Lymph # (Auto) 2.94 Mercer # (Auto) 0.34 Eos # (Auto) 0.16 Baso # (Auto) 0.03 Immature Gran # (Auto) 0.02 Sodium 143 Potassium 3.5 Chloride 109 H Carbon Dioxide 25 Anion Gap 8.0 BUN 10 Creatinine 0.80 Est Cr Clr Drug Dosing 170.3 Est GFR ( Amer) 148.0 Est GFR (Non-Af Amer) 127.7 BUN/Creatinine Ratio 12.9 Glucose 93 Calcium 9.2 Total Bilirubin 0.9 AST 33 ALT 98 H Alkaline Phosphatase 80 Total Protein 7.5 Albumin 3.9 Globulin 3.6 Albumin/Globulin Ratio 1.1 TSH 1.460 Urine Color Urine Appearance Urine pH Ur Specific [place] Urine Protein Urine Glucose (UA) Urine Ketones Urine Blood Urine Nitrite Urine Bilirubin Urine Urobilinogen Ur Leukocyte Esterase Salicylates < 1.7 L Urine Opiates Screen Ur Methadone, Qual Acetaminophen < 2 L Urine Barbiturates Ur Phencyclidine (PCP) U Amphetamin/Meth Scrn MDMA (Ecstasy) Screen U Benzodiazepines Scrn Ur Cocaine Metabolite U Marijuana (THC) Screen U Marijuana THC Carboxy Drug Screen Comment Ethyl Alcohol mg/dL COVID-19 Eval Order SARS-CoV-2, RNA, NAAT 06/28/21 06/28/21 06/28/21 19:07 19:10 19:10 WBC RBC Hgb Hct MCV MCH MCHC RDW Std Deviation RDW Coeff of Angel Plt Count MPV Immature Gran % (Auto) Neut % (Auto) Lymph % (Auto) Mercer % (Auto) Eos % (Auto) Baso % (Auto) Neut # (Auto) Lymph # (Auto) Mercer # (Auto) Eos # (Auto) Baso # (Auto) Immature Gran # (Auto) Sodium Potassium Chloride Carbon Dioxide Anion Gap BUN Creatinine Est Cr Clr Drug Dosing Est GFR ( Amer) Est GFR (Non-Af Amer) BUN/Creatinine Ratio Glucose Calcium Total Bilirubin AST ALT Alkaline Phosphatase Total Protein Albumin Globulin Albumin/Globulin Ratio TSH Urine Color Urine Appearance Urine pH Ur Specific [place] Urine Protein Urine Glucose (UA) Urine Ketones Urine Blood Urine Nitrite Urine Bilirubin Urine Urobilinogen Ur Leukocyte Esterase Salicylates Urine Opiates Screen Ur Methadone, Qual Acetaminophen Urine Barbiturates Ur Phencyclidine (PCP) U Amphetamin/Meth Scrn MDMA (Ecstasy) Screen U Benzodiazepines Scrn Ur Cocaine Metabolite U Marijuana (THC) Screen U Marijuana THC Carboxy Drug Screen Comment Ethyl Alcohol mg/dL 84.3 H COVID-19 Eval Order Covid19 [facility] SARS-CoV-2, RNA, NAAT NEGATIVE 06/28/21 06/28/21 06/28/21 19:49 19:49 19:49 WBC RBC Hgb Hct MCV MCH MCHC RDW Std Deviation RDW Coeff of Angel Plt Count MPV Immature Gran % (Auto) Neut % (Auto) Lymph % (Auto) Mercer % (Auto) Eos % (Auto) Baso % (Auto) Neut # (Auto) Lymph # (Auto) Mercer # (Auto) Eos # (Auto) Baso # (Auto) Immature Gran # (Auto) Sodium Potassium Chloride Carbon Dioxide Anion Gap BUN Creatinine Est Cr Clr Drug Dosing Est GFR ( Amer) Est GFR (Non-Af Amer) BUN/Creatinine Ratio Glucose Calcium Total Bilirubin AST ALT Alkaline Phosphatase Total Protein Albumin Globulin Albumin/Globulin Ratio TSH Urine Color Yellow Urine Appearance Clear Urine pH 6.5 Ur Specific [place] 1.019 Urine Protein Negative Urine Glucose (UA) Negative Urine Ketones Negative Urine Blood Negative Urine Nitrite Negative Urine Bilirubin Negative Urine Urobilinogen Negative Ur Leukocyte Esterase Negative Salicylates Urine Opiates Screen Neg Ur Methadone, Qual Neg Acetaminophen Urine Barbiturates Neg Ur Phencyclidine (PCP) Neg U Amphetamin/Meth Scrn Neg MDMA (Ecstasy) Screen Neg U Benzodiazepines Scrn Neg Ur Cocaine Metabolite Neg U Marijuana (THC) Screen Pos H U Marijuana THC Carboxy 1570 H Drug Screen Comment SEE NOTE Ethyl Alcohol mg/dL COVID-19 Eval Order SARS-CoV-2, RNA, NAAT Hospital Course (1) Major depression: 07/01/21--He continues to tolerate the Wellbutrin well without any side effects. He would prefer to remain at the Wellbutrin XL 150mg dose with the option to increase to 300mg in the future if after 4 weeks he continues to have lingering symptoms of depression. Had a productive family meeting and is utilizing therapeutic coping skills. Rash, which developed prior to initiation of Wellbutrin, for which topical benadryl cream prescribed. 06/30/21--He's tolerating Wellbutrin well so will continue with titration to Wellbutrin XL 150 mg qd with plan to increase to 300mg qd in the next few days if tolerated. Family meeting to be held today. 06/29/21: The patient was [facility] on q15 min checks (behavioral with suicide precautions) for safety. The patient will participate in group, recreational, and milieu therapies and will be offered additional individual and family sessions as clinically appropriate. Risks/benefits/alternatives reviewed re: antidepressants for the treatment of depression and/or anxiety. Discussion included but was not limited to FDA warnings re: suicidality in adolescents and young adults. The patient agreed to a trial of Wellbutrin. Will begin Wellbutrin SR 100 mg now then 150 mg tomorrow, switch to XL prep if no sleep issues. Confirmed no hx of seizure. Mental Health & Subst Abuse Tx Psychiatrist Name of Psychiatrist: eDlilah Psychiatrist's Time of Appointment with Psychiatrist: Please call to follow up on intake Psychiatric Appointment Comment: [phone] Amador [place] Psychiatrist Release of Information: Obtained, Reviewed and Signed Therapist Name of Therapist: Delilah Therapist's Time of Therapist Appointment: Please call to follow up on intake Therapy Appointment Comment: [phone] Ollie Amador [place] Therapist Release of Information: Obtained, Reviewed and Signed Student Services Vice President Name of Student Services Vice President: None Post Discharge Appointments Primary Care Physician Name Of Family Doctor: Maximino [facility] Date of Appointment with PCP: 07/05/21 Time of Appointment with PCP: 5:20 p.m. Provider [phone] of Information: Obtained, Reviewed and Signed Contact Information Discharge Discharge Address: [address] [place], [place] [address] [address] Discharge Plan Discharge Items Patient Disposition: Home - Self-Care Reason For Visit: DEPRESSIVE D/O Discharge Diagnosis: Major Depressive Disorder Activity: Resume your previous activity Non-emergency contact: Primary Care Provider Call non-emergency contact if: you have any medication questions and your symptoms worsen Follow-up/Referrals: Mallory Noyola, [Primary Care Provider] - Diet: Regular Addtl Attending Provider Instructions: SPECIAL CARE INSTRUCTIONS: 1. Follow through with your scheduled aftercare appointments. If unable to keep an appointment, please call to reschedule. 2. Take your medication only as prescribed. Medication should not be changed or stopped without the approval of your doctor. In the event of worsening symptoms or concerns about side effects, contact your doctor immediately. 3. Utilize new healthy coping skills, anger management skills, and stress management skills learned during your hospitalization. Journal feelings and process them with a support person. Identify stressors or situations that may result in relapse, deterioration or inappropriate behaviors and develop a plan to deal with those issues. 4. If your coping skills are ineffective and you are in crisis, contact your outpatient providers for direction. If unable to reach your providers, please call the [facility] CRISIS LINE AT , go to the [facility] walk-in center at [address] [facility] [address] [address], [place], or go to the closest Emergency Room. 5. Avoid alcohol and un-prescribed drugs. 6. You have been provided with the Mental Health Advance Directives Pamphlet for your review. 7. Your condition is stable for discharge to outpatient level of care, but recovery is an ongoing process. Ifthoughts to harm yourself or others return, follow the safety plan developed during your stay. Planning for a safe return home includes securing weapons. Our treatment team recommends weaponsbe removed from the home until your outpatient provider reassesses your progress. In rare cases where the items themselvescannot be removed, guns and ammunitionshould be secured separatelyand keys stored by a reliable personoutside of the home. If you were admitted on an involuntary commitment, the police or other legal authorities may be involved in this process. AFTERCARE APPOINTMENTS: * Please call your insurance company prior to your scheduled appointment to confirm your aftercare providers are covered. Take your insurance information to your appointments. WHO TO CALL AND WHEN: Medical Emergencies: For questions or emergencies related to your hospital stay, please contact the Inpatient Behavioral Health Unit at [phone]. A nurse clinician is on-call 07/04 for the Behavioral Health Unit for emergencies At any time you feel your situation is an emergency, you may also call 911 immediately. Pending Studies at Discharge: No Stand-Alone Forms: [facility] Medications and DC Order Prescriptions: New bupropion HCl 150 mg Tablet Extended Release 24 Hr 150 mg PO QAM 30 Days Qty: 30 RF: 0 hydroxyzine HCl 25 mg Tablet 25 mg PO Q4H PRN (Reason: anxiety/itching) Qty: 10 RF: 0 Continued albuterol sulfate [Ventolin HFA] 90 mcg/actuation Hfa Aerosol Inhaler 2 puff INHALATION Q6H PRN (Reason: Shortness Of Breath Or Wheezing) RF: 0 Discharge Orders: Discharge Order (Routine); Ordered 07/02/21 Ordered By: Darby Mora/Other Patient Handouts: Depression: Tips to Help Yourself Admission Data Admit Date/Time: 06/29/21 00:32 Attending Provider: Darby Lynne Admit Provider: Zulema Gandara Primary Care Provider: Mallory Noyola Other Interventions: Discharge Summary Assessment (RN) Last Done: 07/02/21 10:30 PSY Interdisciplinary Discharge Planning Last Done: 07/02/21 11:39 Coding Level of Care Code 42605 D/C day mgmt > 30 min Diagnoses Major depression F32.9 Time Spent (min) 40
== END 2021-07-02 12:50 | disposition home or self-care (01) | DRG 881 ==
LOC: ED 18:40 → 3S 06-29 00:30 → SUATTDRO 06-29 00:32 → 3S 06-29 00:32